=== PATIENT | female | born 1990 | race Caucasian/White ===

== ENCOUNTER 2018-05-25 20:05 | Emergency (ER) | payer BC ==
[~2018-05-25] VITALS: Ht 149.9 cm; Wt 39.6 kg
[2018-05-25 20:29] VITALS: Ht 149.9 cm; Wt 39.6 kg
[2018-05-25 22:00] LABS: UA SPECIFIC GRAVITY >=1.030 (1.005-1.035); microscopic required? YES; urine erythrocyte 3+ (NEGATIVE)
[2018-05-25 23:44] VITALS: BP 110/60
== END 2018-05-25 23:44 | disposition home or self-care (01) ==
LOC: ED 20:05
PROVIDERS: Emergency Medicine
DX: R19.7 Diarrhea, unspecified (principal); R10.30 Lower abdominal pain, unspecified
CPT/HCPCS: J1885

== ENCOUNTER 2018-05-26 06:59 | Emergency (ER) | payer BC ==
[~2018-05-26] VITALS: Ht 149.9 cm; Wt 39.5 kg
[2018-05-26 07:08] VITALS: Ht 149.9 cm; Wt 39.5 kg
[2018-05-26 08:37] LABS: BASOPHIL % 0.3 % (0-2); PLATELET COUNT 356 x10^3mcL (130-400); RED CELL DISTRIBUTION WIDTH 12.6 % (11.5-14.5)
[2018-05-26 08:38] LABS: CALCIUM 8.8 mg/dL (8.5-10.1); CARBON DIOXIDE 24.5 mmol/L (21-32); CHLORIDE SERUM 100 mmol/L (98-107); GFR1 > 60 mL/min; GLUCOSE SERUM 86 mg/dL (74-106); POTASSIUM SERUM 3.9 mmol/L (3.5-5.1); SODIUM SERUM 136 mmol/L (136-145)
[2018-05-26 08:43] LABS: ALKALINE PHOSPHATASE 84 U/L (46-116); ALT/SGPT 20 U/L (14-59); AST/SGOT 18 U/L (15-37); BILIRUBIN TOTAL 0.4 mg/dL (0.20-1.00); LIPASE 76 IU/L (73-393)
[2018-05-26 08:47] LABS: TOTAL PROTEIN, SERUM 8.5 g/dL (6.4-8.2)
[2018-05-26 10:29] LABS: UA SPECIFIC GRAVITY 1.025 (1.005-1.035); microscopic required? YES; urine erythrocyte 3+ (NEGATIVE)
[2018-05-26 12:10] VITALS: BP 118/89
== END 2018-05-26 12:10 | disposition home or self-care (01) ==
LOC: ED 06:59
PROVIDERS: Emergency Medicine
DX: N39.0 Urinary tract infection, site not specified (principal); F12.10 Cannabis abuse, uncomplicated; Z88.1 Allergy status to other antibiotic agents; Z88.2 Allergy status to sulfonamides
CPT/HCPCS: J0696; J1885; J2405